=== PATIENT | female | born 1985 | race Two or more races ===

== ENCOUNTER 2017-02-02 23:19 | Observation (INO) | payer MEDICAID ==
[2017-02-03] MEDS ORDERED: TERBUTALINE SULFATE 1 MG/ML 1ML VIAL SC ONE (01:23)
== END 2017-02-03 02:35 | disposition home or self-care (01) | DRG 566 ==
LOC: LDRP 23:19
PROVIDERS: ADMIT Specialist; ATTEND Specialist
DX: O62.9 Abnormality of forces of labor, unspecified (principal); Z3A.39 39 weeks gestation of pregnancy
CPT/HCPCS: 59025; 81002; G0378

== ENCOUNTER 2017-02-10 02:27 | Observation (INO) | payer MEDICAID ==
[~2017-02-10] VITALS: Ht 165.1 cm; Wt 65.8 kg
[2017-02-10] MEDS ORDERED: LACT. RINGERS/OXYTOCIN 20UNITS 1,000 ML IV SCH (02:53)
[2017-02-10] MEDS ORDERED: PHISODERM TOP SOLN 240ML BTL TOP PRN (03:00)
[2017-02-10] MEDS ORDERED: METHYLERGONOVINE MALEATE 0.2 MG/ML AMP IM PRN (03:00)
[2017-02-10] MEDS ORDERED: WITCH HAZEL-GLYCERIN PAD TOP PRN (03:00)
[2017-02-10] MEDS ORDERED: PENICILLIN G POT 5MIL/D5 50ML 50 ML IV ONE ×2 (03:00→03:15)
[2017-02-10] MEDS ORDERED: LIDOCAINE 2%HCL (LOCAL ANESTH.) INJ 20ML MDV IJ ONE ×2 (03:00→16:30)
[2017-02-10] MEDS ORDERED: DERMOPLAST 60ML BOTTLE TOP PRN (03:00)
[2017-02-10 03:22] LABS: Basophils # (auto) 0 uL; Basophils % (auto) 0.4 % (0.0-2.0); CONDITION Y; Eosinophils # (auto) 0.1 uL; Hemoglobin 12.3 g/dL (12.2-16.2); Lymphocytes # (auto) 2.5 uL; Lymphocytes % (auto) 28.1 % (10.0-50.0); Mean Corpuscular Hgb Conc. 33.1 g/dL (32.0-36.0); Mean Corpuscular Volume 84.6 fL (80.0-100.0); Mean Platelet Volume 12.4 fL (7.4-10.4); Monocytes # (auto) 0.9 uL; Monocytes % (auto) 9.8 % (0.0-12.0); Neutrophils # (auto) 5.3 uL; Neutrophils % (auto) 60.7 % (37.0-80.0); Platelet Count (auto) 226 10^3/uL (140-450); Red Cell Distribution Width 13.9 % (11.6-16.0); SUSPECT SEE PRINTOUT; White Blood Cell 8.7 10^3/uL (4.4-10.8)
[2017-02-10 03:40] LABS: INR 0.84 (0.9-1.15); Partial Thromboplastin Time 26.6 sec (22.64-33.71); Prothrombin Time 9.1 sec (9.37-12.3)
[2017-02-10 03:48] LABS: Albumin 2.6 g/dL (3.4-5.0); BUN/Creatinine Ratio 10.7; Calcium 9.2 mg/dL (8.5-10.1); Potassium 3.9 mmol/L (3.5-5.1)
[2017-02-10 03:51] LABS: Bilirubin, Total 0.3 mg/dL (0.2-1.0); Total Protein 6.9 g/dL (6.4-8.2)
[2017-02-10] MEDS ORDERED: LACT. RINGERS/OXYTOCIN 20UNITS 1,000 ML IV ONE (05:01)
[2017-02-10 06:50] LABS: Urine Bilirubin Negative (Negative); Urine Blood TRACE /uL (Negative); Urine Color Yellow (Yellow); Urine Glucose Normal (Normal); Urine Ketone Negative (Negative); Urine Nitrite Negative (Negative); Urine RBC 1 /hpf (0 - 4); Urine Squamous Epithelial Cell FEW /hpf (<5); Urine Urobilinogen Normal (Negative); Urine pH 6.5 (5.0-8.0)
[2017-02-10] MEDS ORDERED: PENICILLIN G POTASSIUM 2,500,000 UNITS in D5W 5% 50 ML IV SCH (07:00)
[2017-02-10] MEDS: PENICILLIN G POTASSIUM 2,500,000 UNITS in D5W 5% 50 ML IV SCH ×5 (07:56→23:45)
[2017-02-10] MEDS: LACTATED RINGER'S 1,000 ML IV SCH ×3 (08:05→18:53)
[2017-02-10] MEDS: ceFAZolin 1GM/50ML D5W 50 ML IV SCH ×2 (13:44→22:11)
[2017-02-10] MEDS ORDERED: ePHEDrine SULFATE 50 MG/ML AMP IV ONE (16:30)
[2017-02-10] MEDS ORDERED: fentaNYL W ROPIVACAINE 150 ML EPI SCH (16:30)
[2017-02-10] MEDS ORDERED: LIDOCAINE HCL 2 %PF INJ 10ML AMP IJ ONE (16:30)
[2017-02-10] MEDS ORDERED: fentaNYL CITRATE 100 MCG/2 ML VL IV ONE (16:30)
[2017-02-10] MEDS ORDERED: NALOXONE HCL 0.4 MG/ML VIAL IV ONE (16:30)
[2017-02-10] MEDS ORDERED: PROMETHAZINE HCL 25 MG/ML 1ML ONE (20:51)
[2017-02-10] MEDS ORDERED: PROMETHAZINE HCL 25 MG/ML 1ML IM ONE (21:00)
[2017-02-10] MEDS: NALBUPHINE HCL 10 MG/1ml INJECTION IV PRN (21:20)
[2017-02-11] MEDS ORDERED: BUTORPHANOL TARTRATE 2 MG/1 ML VIAL ONE (01:50)
[2017-02-11] MEDS: LACTATED RINGER'S 1,000 ML IV SCH ×3 (02:53→18:53)
[2017-02-11] MEDS: ceFAZolin 1GM/50ML D5W 50 ML IV SCH (05:32)
[2017-02-11] MEDS ORDERED: BUTORPHANOL TARTRATE 2 MG/1 ML VIAL IV ONE (06:00)
[2017-02-11] MEDS ORDERED: PROMETHAZINE HCL 25 MG/ML 1ML IM ONE (06:00)
[2017-02-11] MEDS: NALBUPHINE HCL 10 MG/1ml INJECTION IV PRN (06:10)
[2017-02-11] MEDS ORDERED: PREN-96 PO (07:03)
[2017-02-11] MEDS ORDERED: ASPI81TA27 PO (07:04)
[2017-02-11] MEDS ORDERED: LACTATED RINGER'S 1,000 ML IV ONE (07:37)
[2017-02-11] MEDS ORDERED: PIPERACILLIN-TAZOB 3.375GM 100 ML IV ONE ×2 (08:15)
[2017-02-11] MEDS ORDERED: SODIUM CHLORIDE 0.9% 500 ML IV PRN (11:38)
[2017-02-11] MEDS ORDERED: NALOXONE HCL 0.4 MG/ML VIAL IV ONE (11:45)
[2017-02-11] MEDS ORDERED: fentaNYL W ROPIVACAINE 150 ML EPI SCH (11:45)
[2017-02-11] MEDS ORDERED: fentaNYL CITRATE 100 MCG/2 ML VL IV ONE (11:45)
[2017-02-11] MEDS ORDERED: ePHEDrine SULFATE 50 MG/ML AMP IV ONE (11:45)
[2017-02-11] MEDS ORDERED: PIPERACILLIN-TAZOB 3.375GM 100 ML IV SCH (14:00)
[2017-02-11] MEDS ORDERED: DOCUSATE CALCIUM 240 MG CAP PO ONE (18:00)
[2017-02-11] MEDS: IBUPROFEN 600 MG TAB PO PRN ×2 (18:24→23:05)
[2017-02-11 23:00] VITALS: BP 118/58
[2017-02-12] MEDS: LACTATED RINGER'S 1,000 ML IV SCH ×2 (02:53→10:53)
[2017-02-12 03:13] VITALS: BP 117/69
[2017-02-12] MEDS: IBUPROFEN 600 MG TAB PO PRN ×2 (03:19→07:20)
[2017-02-12 07:00] VITALS: BP 116/70
[2017-02-12] MEDS ORDERED: DOCUSATE CALCIUM 240 MG CAP PO SCH (10:00)
[2017-02-12 11:00] VITALS: BP 112/55
[2017-02-12 15:00] VITALS: BP 118/63
== END 2017-02-12 18:08 | disposition home or self-care (01) | DRG 560 ==
LOC: LDRP 02:27
PROVIDERS: ADMIT Obstetrics & Gynecology; ATTEND Obstetrics & Gynecology
DX: O80 Encounter for full-term uncomplicated delivery (principal); Z37.0 Single live birth; O99.824 Streptococcus B carrier state complicating childbirth; O42.92 Full-term premature rupture of membranes, unspecified as to length of time between rupture and onset of labor; Z3A.40 40 weeks gestation of pregnancy
CPT/HCPCS: 36415; 51702; 59025; 59409; 62282; 80053; 80307; 81001; 81002; 85025; 85610; 85730; 86850; 86900; 86901; 94760; 96365; 96366; 96367; 96372; 96375; 96376; G0378; J0595; J0690; J2300; J2540; J2543; J2550; J2590; J3010; 96361; 96374; J7060